=== PATIENT | female | born 1945 | race Caucasian/White ===

== ENCOUNTER 2021-02-05 04:43 | Day surgery (SDC) | payer OTHER, BC ==
[2021-02-04 13:56] VITALS: BMI 23.6
[~2021-02-05 04:43] MED LIST: ACETAMINOPHEN 325 MG TABLET (FP) PO PRN; BSS (NA/CA/MG/K) BALANCED SALT SOLUTION OPHTH SOLN 15 ML BOTTLE OS ONE; CHONDROITIN SU A/HYALUR SOD 1 KIT IO ONE; CYCLOPENTOLATE HCL 1% OPHTH SOLN 2 ML BOTTLE OP SCH; KETOROLAC TROMETHAMINE 0.5% EYE DROP 1 DROP DROPS OP SCH; LIDOCAINE HCL 1% PRESERVATIVE FREE - 30ML VIAL IO ONE; OFLOXACIN 0.3% OPHTHALMIC SOLUTION 5 ML BOTTLE OP SCH; PHENYLEPHRINE 2.5% OPHTH SOLN 15 ML BOTTLE OP SCH; PHENYLEPHRINE/KETOROLAC 4 ML VIAL IO ONE; POVIDONE-IODINE 5% OPHTHALMIC PREP 30 ML SOLUTION OS ONE; TETRACAINE 0.5% OPHTH SOLN 2 ML BOTTLE OS ONE; TROPICAMIDE 1% OPHTH SOLN 15 ML BOTTLE OP SCH
[2021-02-05] MEDS ORDERED: BSS (NA/CA/MG/K) BALANCED SALT SOLUTION OPHTH SOLN 15 ML BOTTLE ONE (07:21)
[2021-02-05] MEDS ORDERED: POVIDONE-IODINE 5% OPHTHALMIC PREP 30 ML SOLUTION ONE (07:21)
[2021-02-05] MEDS ORDERED: LIDOCAINE HCL/PF 1% SDV 5ML VIAL ONE (07:21)
[2021-02-05] MEDS ORDERED: CHONDROITIN SU A/HYALUR SOD 1 KIT ONE ×2 (07:28)
[2021-02-05] MEDS ORDERED: PHENYLEPHRINE/KETOROLAC 4 ML VIAL IO ONE ×2 (07:45→11:25)
[2021-02-05] MEDS ORDERED: TETRACAINE 0.5% OPHTH SOLN 2 ML BOTTLE ONE (07:49)
[2021-02-05] MEDS ORDERED: CYCLOPENTOLATE HCL 1% OPHTH SOLN 2 ML BOTTLE ONE (09:11)
[2021-02-05] MEDS ORDERED: KETOROLAC TROMETHAMINE 0.5% EYE DROP 1 DROP DROPS ONE (09:11)
[2021-02-05] MEDS ORDERED: OFLOXACIN 0.3% OPHTHALMIC SOLUTION 5 ML BOTTLE ONE (09:11)
[2021-02-05] MEDS ORDERED: TROPICAMIDE 1% OPHTH SOLN 15 ML BOTTLE ONE (09:11)
[2021-02-05] MEDS ORDERED: MIDAZOLAM HCL 2 MG/2 ML SINGLE DOSE VIAL ONE (11:00)
[2021-02-05] MEDS ORDERED: KETOROLAC TROMETHAMINE 30 MG/1 ML VIAL ONE (11:00)
[2021-02-05] MEDS ORDERED: OXYMETAZOLINE 0.05% NASAL SOLUTION 15 ML BOTTLE NS ONE ×2 (11:02→11:15)
[2021-02-05] MEDS ORDERED: TETRACAINE 0.5% OPHTH SOLN 2 ML BOTTLE OS ONE (11:06)
[2021-02-05] MEDS ORDERED: POVIDONE-IODINE 5% OPHTHALMIC PREP 30 ML SOLUTION OS ONE (11:08)
[2021-02-05] MEDS ORDERED: LIDOCAINE HCL 1% PRESERVATIVE FREE - 30ML VIAL IO ONE (11:17)
[2021-02-05] MEDS ORDERED: BSS (NA/CA/MG/K) BALANCED SALT SOLUTION OPHTH SOLN 15 ML BOTTLE OS ONE (11:17)
[2021-02-05] MEDS ORDERED: CHONDROITIN SU A/HYALUR SOD 1 KIT IO ONE (11:17)
[2021-02-05 12:25] VITALS: BP 153/64; PULSE 87; TEMP 97.7
== END 2021-02-05 13:07 | disposition home or self-care (01) ==
LOC: JASU-SURG 04:43
PROVIDERS: ATTEND Ophthalmology
PROC: 08RK3JZ Replacement of Left Lens with Synthetic Substitute, Percutaneous Approach (ICD-10-PCS; principal; 2021-02-05 11:00)
DX: H26.9 Unspecified cataract (principal); E11.9 Type 2 diabetes mellitus without complications
CPT/HCPCS: J1097

== ENCOUNTER 2021-02-19 05:18 | Day surgery (SDC) | payer OTHER, BC ==
[2021-02-14 15:09] VITALS: BMI 23.4
[~2021-02-19 05:18] MED LIST changes: -BSS (NA/CA/MG/K) BALANCED SALT SOLUTION OPHTH SOLN 15 ML BOTTLE OS ONE; -CHONDROITIN SU A/HYALUR SOD 1 KIT IO ONE; -LIDOCAINE HCL 1% PRESERVATIVE FREE - 30ML VIAL IO ONE; -PHENYLEPHRINE/KETOROLAC 4 ML VIAL IO ONE; -POVIDONE-IODINE 5% OPHTHALMIC PREP 30 ML SOLUTION OS ONE; -TETRACAINE 0.5% OPHTH SOLN 2 ML BOTTLE OS ONE
[2021-02-19] MEDS ORDERED: POVIDONE-IODINE 5% OPHTHALMIC PREP 30 ML SOLUTION ONE (07:12)
[2021-02-19] MEDS ORDERED: LIDOCAINE HCL/PF 1% SDV 5ML VIAL ONE (07:12)
[2021-02-19] MEDS ORDERED: BSS (NA/CA/MG/K) BALANCED SALT SOLUTION OPHTH SOLN 15 ML BOTTLE ONE (07:12)
[2021-02-19] MEDS ORDERED: TETRACAINE 0.5% OPHTH SOLN 2 ML BOTTLE ONE (08:23)
[2021-02-19] MEDS ORDERED: OFLOXACIN 0.3% OPHTHALMIC SOLUTION 5 ML BOTTLE ONE (10:06)
[2021-02-19] MEDS ORDERED: KETOROLAC TROMETHAMINE 0.5% EYE DROP 1 DROP DROPS ONE (10:07)
[2021-02-19] MEDS ORDERED: CYCLOPENTOLATE HCL 1% OPHTH SOLN 2 ML BOTTLE ONE (10:07)
[2021-02-19] MEDS ORDERED: TROPICAMIDE 1% OPHTH SOLN 15 ML BOTTLE ONE (10:07)
[2021-02-19] MEDS ORDERED: TETRACAINE 0.5% OPHTH SOLN 2 ML BOTTLE TP ONE ×2 (10:09→11:50)
[2021-02-19] MEDS ORDERED: BSS (NA/CA/MG/K) BALANCED SALT SOLUTION OPHTH SOLN 15 ML BOTTLE OD ONE ×2 (10:10→11:59)
[2021-02-19] MEDS ORDERED: POVIDONE-IODINE 5% OPHTHALMIC PREP 30 ML SOLUTION OD ONE ×2 (10:10→11:52)
[2021-02-19] MEDS ORDERED: CHONDROITIN SU A/HYALUR SOD 1 KIT IO ONE ×2 (10:11→11:59)
[2021-02-19] MEDS ORDERED: LIDOCAINE HCL 1% PRESERVATIVE FREE - 30ML VIAL IO ONE ×2 (10:11→11:59)
[2021-02-19] MEDS ORDERED: PHENYLEPHRINE/KETOROLAC 4 ML VIAL IO ONE ×2 (10:12→12:08)
[2021-02-19] MEDS ORDERED: CYCLOPENTOLATE HCL 1% OPHTH SOLN 2 ML BOTTLE OD ONE ×3 (10:35→10:45)
[2021-02-19] MEDS ORDERED: OFLOXACIN 0.3% OPHTHALMIC SOLUTION 5 ML BOTTLE OD ONE ×3 (10:35→10:45)
[2021-02-19] MEDS ORDERED: KETOROLAC TROMETHAMINE 0.5% EYE DROP 1 DROP DROPS OD ONE ×3 (10:35→10:45)
[2021-02-19] MEDS ORDERED: PHENYLEPHRINE 2.5% OPHTH SOLN 15 ML BOTTLE OD ONE ×3 (10:35→10:45)
[2021-02-19] MEDS ORDERED: TROPICAMIDE 1% OPHTH SOLN 15 ML BOTTLE OD ONE ×3 (10:35→10:45)
[2021-02-19] MEDS ORDERED: MIDAZOLAM HCL 2 MG/2 ML SINGLE DOSE VIAL ONE (11:46)
[2021-02-19] MEDS ORDERED: KETOROLAC TROMETHAMINE 30 MG/1 ML VIAL ONE (11:46)
[2021-02-19 13:25] VITALS: BP 146/69; PULSE 88; TEMP 97.8
== END 2021-02-19 13:05 | disposition home or self-care (01) ==
LOC: JASU-SURG 05:18
PROVIDERS: ATTEND Ophthalmology
PROC: 08RJ3JZ Replacement of Right Lens with Synthetic Substitute, Percutaneous Approach (ICD-10-PCS; principal; 2021-02-19 12:00)
DX: H26.9 Unspecified cataract (principal)
CPT/HCPCS: J1097